=== PATIENT | male | born 1985 | race African-American/Black ===

== ENCOUNTER 2021-06-28 04:31 | Emergency (ER) | payer OTHER, BC | END 2021-06-28 10:00 | disposition home or self-care (01) | LOC: MADERS 04:31 → EDBD 04:31 → MADERS 10:00 | DX: S13.4XXA Sprain of ligaments of cervical spine, initial encounter (principal); S80.12XA Contusion of left lower leg, initial encounter; S80.11XA Contusion of right lower leg, initial encounter; V49.40XA Driver injured in collision with unspecified motor vehicles in traffic accident, initial encounter | CPT/HCPCS: 70450; 72125 ==